=== PATIENT | male | born 1980 | race Caucasian/White ===

== ENCOUNTER 2017-01-11 20:37 | Emergency (ER) | payer SELFPAY ==
[~2017-01-11 20:37] MED LIST: OMEPRAZOLE PO; POLYETHYLENE PO; RANITIDINE PO
== END 2017-01-11 21:58 | disposition left against medical advice (07) ==
LOC: E/R 20:37
DX: Z53.21 Procedure and treatment not carried out due to patient leaving prior to being seen by health care provider (principal)